=== PATIENT | male | born 1980 | race African-American/Black ===

== ENCOUNTER 2017-12-11 11:19 | Emergency (ER) | payer BC ==
[~2017-12-11] VITALS: Ht 177.8 cm; Wt 94.8 kg
[2017-12-11 11:24] VITALS: TEMP 99
[2017-12-11 17:07] VITALS: BP 158/94; PULSE 81
== END 2017-12-11 17:12 | disposition home or self-care (01) ==
LOC: COL.ER 11:19
DX: S09.90XA Unspecified injury of head, initial encounter (principal); I10 Essential (primary) hypertension; Z98.890 Other specified postprocedural states; W22.8XXA Striking against or struck by other objects, initial encounter; Y92.59 Other trade areas as the place of occurrence of the external cause
CPT/HCPCS: J1100; J1170; J1885; J2270; J2405; J7030

== ENCOUNTER → 2020-09-16 | Outpatient (CLI) | payer BC | LOC: COL.VAS | DX: I51.7 Cardiomegaly (principal) ==